=== PATIENT | female | born 1950 | race Caucasian/White ===

== ENCOUNTER 2024-10-04 12:29 | Inpatient (IN) | payer OTHER ==
[2024-10-04] MEDS ORDERED: LORazepam 2 MG/ML VIAL ONE (12:46)
[2024-10-04] MEDS ORDERED: ASPIRIN 81 MG CHEWABLE TABLET ONE (12:47)
[2024-10-04] MEDS ORDERED: MAGNESIUM SULFATE 1 gm IVPB 1 GM/100 ML BAG IV ONE (12:47)
[2024-10-04] MEDS ORDERED: FAMOTIDINE 20 MG/2 ML VIAL IV ONE (12:47)
[2024-10-04] MEDS ORDERED: NA CHLORIDE 0.9% 1,000 ML ONE (12:48)
[2024-10-04 13:04] LABS: Absolute Eosinophils 0.2 K/uL (0-0.5); Absolute Monocytes 0.8 K/uL (0.1-1.3); Basophils % 0.4 % (0-1.3); Eosinophils % 2.2 % (0-4.4); Hematocrit 39.5 % (36.0-45.0); Hemoglobin 13.3 g/dL (12.0-15.0); Lymphocytes % 25.5 % (15.3-44.8); MCH 30.6 pg (27.0-35.0); MCHC 33.7 g/dL (32.0-36.0); MCV 90.8 fL (80-100); MPV 7.6 fL (7.6-11.3); Monocytes % 9.6 % (3.3-12.3); Neutrophils % 62.3 % (41.7-73.7); Platelets 369 thou/uL (152-406); RBC Red Blood Cell Count 4.35 M/uL (3.86-4.86); Red Cell Distribution Width 14.9 % (12.1-15.2)
[2024-10-04 13:05] LABS: PT Prothrombin Time 10.9 SECONDS (10-13.0); Protime INR 0.95
[2024-10-04 13:25] LABS: ALT/SGPT 33 U/L (13-56); AST/SGOT 21 U/L (15-37); Albumin 3.7 g/dL (3.4-5.0); Albumin/Globulin Ratio 0.8 (1.1-1.8); Alkaline Phosphatase 106 U/L (45-117); Anion Gap 8.9 mEq/L (5.0-15.0); BUN Blood Urea Nitrogen 30 mg/dL (7-18); Bicarbonate 28 mEq/L (21-32); Bilirubin Total 0.4 mg/dL (0.2-1.0); Globulin 4.6 g/dL (2.3-3.5); Glomerular Filtration Rate 62 ml/min (=/>90); Glucose Level 141 mg/dL (74-106); Lipase 33 U/L (13-75); Magnesium 2.3 mg/dL (1.6-2.4); NT PRO-BNP 435 pg/mL (<125); Potassium 3.9 mEq/L (3.5-5.1); Protein, Total 8.3 g/dL (6.4-8.2); Sodium Level 138 mEq/L (136-145); Troponin High Sensitivity 8.8 pg/mL (<58.9)
[2024-10-04 13:31] LABS: Bilirubin Direct < 0.2 mg/dL (0-0.2); Bilirubin Indirect, Calculated 0.2 mg/dL (0.2-0.8)
--- NOTE | 2024-10-04 14:28 | RAD REPORT ---
EXAMINATION: ONE VIEW CHEST XR CLINICAL INDICATION: COUGH TECHNIQUE: Frontal chest projection is submitted. Examination is limited by patient positioning and t echnique. COMPARISON: No prior exam. FINDINGS: Mild pulmonary edema. Heart is moderately enlarged. No displaced fractures identified. Right-sided p ort catheters tip in SVC. IMPRESSION: Mild CHF.
[2024-10-04] MEDS ORDERED: POTASSIUM 25 MEQ EFFERV TAB ONE (14:51)
[2024-10-04] MEDS ORDERED: FUROSEMIDE 40 MG/4 ML VIAL ONE (14:51)
--- NOTE | 2024-10-04 15:06 | ER ---
Nurse's Notes [facility] Name: Malu Lennon Age: 74 yrs Sex: Female : 1950 Arrival Date: 10/04/2024 Time: 12:29 Bed 4 Private MD: Diagnosis: Chest pain, unspecified;Dyspnea;Type 2 diabetes mellitus with hyperglycemia;Combined systolic (congestive) and diastolic (congestive) heart failure;Obesity, unspecified Presentation: 10/04 12:34 Chief complaint: EMS states: Called to patients home for chest heaviness and burning cm10 onset this morning. Pt also reports feeling palpitations. Coronavirus screen: Client denies travel out of the [place] in the last 14 days. Ebola Screen: Patient denies travel to an Ebola-affected area in the 21 days before illness onset. Initial Sepsis Screen: Does the patient meet any 2 criteria? No. Patient's initial sepsis screen is negative. Does the patient have a suspected source of infection? No. Patient's initial sepsis screen is negative. Risk Assessment: Do you want to hurt yourself or someone else? Patient reports no desire to harm self or others. Onset of symptoms was October 04, 2024. 12:34 Method Of Arrival: EMS: [facility] cm10 12:34 Acuity: MARGI 2 cm10 12:36 Care prior to arrival: Glucose check: 191. cm10 Triage Assessment: 12:37 General: Appears uncomfortable, Behavior is calm, cooperative. Pain: Complains of pain cm10 in chest Pain currently is 7 out of 10 on a pain scale. Quality of pain is described as burning, heavy, Pain began This morning. Neuro: No deficits noted. Level of Consciousness is awake, alert, obeys commands, Oriented to person, place, time, situation, Appropriate for age. Cardiovascular: Reports chest pain, palpitations, Chest pain is described as Pain is 7 out of 10 on a pain scale. quality is burning, heaviness. Respiratory: No deficits noted. Airway is patent Respiratory effort is even, unlabored, Respiratory pattern is regular, symmetrical. Derm: Skin is pink, warm \T\ dry. Historical: - Allergies: 12:36 No Known Allergies; cm10 - PMHx: 12:36 Diabetes mellitus; Hypertensive disorder; Colon Cancer; cm10 - PSHx: 12:36 Colon Ressection; cm10 - Immunization history:: Adult Immunizations up to date. - Infectious Disease History:: Denies. - Social history:: Smoking status: Patient denies any tobacco usage or history of. - Family history:: not pertinent. Screenin:38 [facility] ED Fall Risk Assessment (Adult) History of falling in the last 3 months, cm10 including since admission No falls in past 3 months (0 pts) Confusion or Disorientation No (0 pts) Intoxicated or Sedated No (0 pts) Impaired Gait No (0 pts) Mobility Assist Device Used No (0 pt) Altered Elimination No (0 pt) Score/Fall Risk Level 0 - 2 = Low Risk Oriented to surroundings, Maintained a safe environment, Hourly rounding (assess needs \T\ fall precautionary measures) done. Abuse screen: Denies threats or abuse. Denies injuries from another. Nutritional screening: No deficits noted. Tuberculosis screening: No symptoms or risk factors identified. Assessment: 13:53 Reassessment: Patient appears in no apparent distress at this time. Patient and/or cm10 family updated on plan of care and expected duration. Pain level reassessed. Patient is alert, oriented x 3, equal unlabored respirations, skin warm/dry/pink. 15:11 Reassessment: Patient appears in no apparent distress at this time. Patient and/or cm10 family updated on plan of care and expected duration. Pain level reassessed. Patient is alert, oriented x 3, equal unlabored respirations, skin warm/dry/pink. Purewick placed on patient at this time. 16:57 Reassessment: Patient appears in no apparent distress at this time. Patient and/or cm10 family updated on plan of care and expected duration. Pain level reassessed. Patient is alert, oriented x 3, equal unlabored respirations, skin warm/dry/pink. Vital Signs: 12:34 BP 153 / 74; Pulse 75; Resp 15; Temp 98.1; Pulse Ox 99% on R/A; Weight 96.62 kg; Height cm10 5 ft. 2 in. ; Pain 7/10; 13:52 BP 130 / 61; Pulse 67; Resp 15; Pulse Ox 97% on R/A; cm10 15:11 BP 130 / 58; Pulse 70; Resp 15; Pulse Ox 98% ; cm10 15:30 BP 133 / 69; Pulse 71; Resp 15; Pulse Ox 100% on R/A; cm10 16:00 BP 126 / 66; Pulse 70; Resp 15; Pulse Ox 100% ; cm10 16:30 BP 120 / 58; Pulse 67; Resp 15; Pulse Ox 100% ; cm10 12:34 Body Mass Index 38.96 (96.62 kg, 157.48 cm) cm10 12:34 Pain Scale: Adult cm10 [place] Coma Score: 13:17 Eye Response: spontaneous(4). Motor Response: obeys commands(6). Verbal Response: tejinder oriented(5). Total: 15. ED Course: 12:30 Patient arrived in ED. bd 12:32 Nic Crystal MD is Attending Physician. tejinder 12:34 Lacie Izquierdo, CARLEY is Primary Nurse. cm10 12:35 Triage completed. cm10 12:38 Arm band placed on right wrist. Patient placed in an exam room, on a stretcher, on cm10 residential monitor, on pulse oximetry. EKG completed in triage. Results shown to MD. 12:38 Patient has correct armband on for positive identification. Placed in gown. Bed in low cm10 position. Call light in reach. Side rails up X2. Client placed on continuous cardiac and pulse oximetry monitoring. NIBP monitoring applied. cafeteria monitor on. 12:38 EKG done, by ED staff, reviewed by Nic Crystal MD. cm10 12:41 Initial lab(s) drawn, by ED staff, sent to lab. Inserted saline lock: 20 gauge in right kb4 antecubital area, using aseptic technique. Blood collected. Flushed with 10 mL NS. 14:24 XRAY Chest (1 view) In Process Unspecified. EDMS 15:05 Harmony Yoon MD is Hospitalizing Provider. [facility] 16:58 No provider procedures requiring assistance completed. Patient admitted, IV remains in cm10 place. 16:59 Provided Education on: Need for admit. 10 Administered Medications: 12:58 Drug: Magnesium Sulfate IVPB 1 grams IVPB once over 1 hrs Route: IVPB; Infused Over: 1 bp hrs; Site: right antecubital; 14:34 Follow up: Response: No adverse reaction; IV Status: Completed infusion cm10 12:58 Drug: Ativan IVP 0.5 mg IVP once Route: IVP; Site: right antecubital; bp 13:02 Follow up: Response: No adverse reaction bp 12:58 Drug: Aspirin PO Chewable Tablet 81 mg PO once Route: PO; bp 13:02 Follow up: Response: No adverse reaction bp 12:58 Drug: Famotidine IVP 20 mg IVP once; dilute with 10 mL 0.9% NaCl; give over 2 minutes bp Route: IVP; Site: right antecubital; 13:02 Follow up: Response: No adverse reaction bp 12:59 Drug: NS 0.9% IV 1000 ml IV at 1000 ml once; to be given as a bolus over 60 minutes bp Route: IV; Rate: 1000 ml; Site: right antecubital; 14:34 Follow up: Response: No adverse reaction; IV Status: Completed infusion; IV Intake: cm10 1000ml 15:11 Drug: Furosemide IVP 40 mg IVP once; give over 2 minutes Route: IVP; Site: right cm10 antecubital; 16:11 Follow up: Response: No adverse reaction cm10 15:11 Drug: Potassium PO Effervescent Tablet 50 mEq PO once; dissolve in 4 ounces of water or cm10 juice Route: PO; 16:11 Follow up: Response: No adverse reaction cm10 15:39 Drug: GI Cocktail without - (Maalox PO 30 ml, Lidocaine Mucous Membrane 2 % 15 jb4 ml) PO once Route: PO; 16:53 Follow up: Response: No adverse reaction cm10 15:39 Drug: Enoxaparin Sub-Q 90 mg Sub-Q once Route: Sub-Q; Site: left lower abdomen; jb4 16:53 Follow up: Response: No adverse reaction cm10 Medication: 12:38 VIS not applicable for this client. cm10 Intake: 14:34 IV: 1000ml; Total: 1000ml. cm10 Outcome: 15:06 Decision to Hospitalize by Provider. tejinder 16:58 Admitted to Med/surg via stretcher, room 224, cm10 16:58 Condition: stable 16:58 Instructed on the need for admit, 17:54 Patient left the ED. cm10 Signatures: Dispatcher [employer] EDMS Genesis Lynn Corey, MD MD cha Bryson, James RN RN jb4 Faheem Smith RN RN bp Martinez, Clarissa, RN RN cm10 Cox, Juany kb4
--- NOTE | 2024-10-04 15:06 | EDPHYS ---
Physician Documentation [facility] Name: Malu Lennon Age: 74 yrs Sex: Female : 1950 Arrival Date: 10/04/2024 Time: 12:29 Bed 4 Private MD: ED Physician Nic Crystal HPI: 10/04 13:17 This 74 yrs old Female presents to ER via EMS with complaints of Chest Pain. tejinder 13:17 The patient or guardian reports chest pain that is located primarily in the anterior tejinder chest wall, bilaterally. Onset: 3 day(s) ago. The pain does not radiate. Associated signs and symptoms: The patient has no apparent associated signs or symptoms. The chest pain is described as shaking. Duration: The patient or guardian reports multiple episodes, with no pattern. Duration: The patient or guardian reports multiple episodes. Modifying factors: The symptoms are alleviated by nothing. the symptoms are aggravated by nothing. Severity of pain: At its worst the pain was very mild in the emergency department the pain is unchanged. The patient has experienced similar episodes in the past, multiple times. Historical: - Allergies: 12:36 No Known Allergies; cm10 - PMHx: 12:36 Diabetes mellitus; Hypertensive disorder; Colon Cancer; cm10 - PSHx: 12:36 Colon Ressection; cm10 - Immunization history:: Adult Immunizations up to date. - Infectious Disease History:: Denies. - Social history:: Smoking status: Patient denies any tobacco usage or history of. - Family history:: not pertinent. ROS: 13:17 Constitutional: Negative for fever, chills, and weight loss, Eyes: Negative for injury, tejinder pain, redness, and discharge, ENT: Negative for injury, pain, and discharge, Neck: Negative for injury, pain, and swelling, Cardiovascular: Negative for chest pain, palpitations, and edema, Respiratory: Negative for shortness of breath, cough, wheezing, and pleuritic chest pain, Abdomen/GI: Negative for abdominal pain, nausea, vomiting, diarrhea, and constipation, Back: Negative for injury and pain, : Negative for injury, bleeding, discharge, and swelling, MS/Extremity: Negative for injury and deformity, Skin: Negative for injury, rash, and discoloration, Neuro: Negative for headache, weakness, numbness, tingling, and seizure, Psych: Negative for depression, anxiety, suicide ideation, homicidal ideation, and hallucinations, Allergy/Immunology: Negative for hives, rash, and allergies, Endocrine: Negative for neck swelling, polydipsia, polyuria, polyphagia, and marked weight changes, Hematologic/Lymphatic: Negative for swollen nodes, abnormal bleeding, and unusual bruising, 13:17 MS/extremity: Negative for acute changes, Exam: 13:17 Constitutional: This is a well developed, well nourished patient who is awake, alert, tejinder and in no acute distress. Head/Face: Normocephalic, atraumatic. Eyes: Pupils equal round and reactive to light, extra-ocular motions intact. Lids and lashes normal. Conjunctiva and sclera are non-icteric and not injected. Cornea within normal limits. Periorbital areas with no swelling, redness, or edema. ENT: Nares patent. No nasal discharge, no septal abnormalities noted. Tympanic membranes are normal and external auditory canals are clear. Oropharynx with no redness, swelling, or masses, exudates, or evidence of obstruction, uvula midline. Mucous membranes moist. Neck: Trachea midline, no thyromegaly or masses palpated, and no cervical lymphadenopathy. Supple, full range of motion without nuchal rigidity, or vertebral point tenderness. No Meningismus. Chest/axilla: Normal chest wall appearance and motion. Nontender with no deformity. No lesions are appreciated. Cardiovascular: Regular rate and rhythm with a normal S1 and S2. No gallops, murmurs, or rubs. Normal PMI, no JVD. No pulse deficits. Respiratory: Lungs have equal breath sounds bilaterally, clear to auscultation and percussion. No rales, rhonchi or wheezes noted. No increased work of breathing, no retractions or nasal flaring. Abdomen/GI: Soft, non-tender, with normal bowel sounds. No distension or tympany. No guarding or rebound. No evidence of tenderness throughout. Back: No spinal tenderness. No costovertebral tenderness. Full range of motion. Skin: Warm, dry with normal turgor. Normal color with no rashes, no lesions, and no evidence of cellulitis. MS/ Extremity: Pulses equal, no cyanosis. Neurovascular intact. Full, normal range of motion., bilateral aka Neuro: Awake and alert, GCS 15, oriented to person, place, time, and situation. Cranial nerves II-XII grossly intact. Motor strength 5/5 in all extremities. Sensory grossly intact. Cerebellar exam normal. Normal gait. Psych: Awake, alert, with orientation to person, place and time. Behavior, mood, and affect are within normal limits. 13:17 ECG was reviewed by the Attending Physician. 13:17 Musculoskeletal/extremity: DVT Exam: No signs of deep vein thrombosis. no pain, no swelling, no tenderness, negative Homans' sign noted on exam, no appreciated bluish discoloration, no erythema, no increased warmth, Vital Signs: 12:34 BP 153 / 74; Pulse 75; Resp 15; Temp 98.1; Pulse Ox 99% on R/A; Weight 96.62 kg; Height cm10 5 ft. 2 in. ; Pain 7/10; 13:52 BP 130 / 61; Pulse 67; Resp 15; Pulse Ox 97% on R/A; cm10 15:11 BP 130 / 58; Pulse 70; Resp 15; Pulse Ox 98% ; cm10 15:30 BP 133 / 69; Pulse 71; Resp 15; Pulse Ox 100% on R/A; cm10 16:00 BP 126 / 66; Pulse 70; Resp 15; Pulse Ox 100% ; cm10 16:30 BP 120 / 58; Pulse 67; Resp 15; Pulse Ox 100% ; cm10 12:34 Body Mass Index 38.96 (96.62 kg, 157.48 cm) cm10 12:34 Pain Scale: Adult cm10 [place] Coma Score: 13:17 Eye Response: spontaneous(4). Motor Response: obeys commands(6). Verbal Response: tejinder oriented(5). Total: 15. MDM: 12:32 Medical Screening Exam initiated tejinder 13:21 Differential diagnosis: abnormal EKG, acute myocardial infarction, acute pericarditis, tejinder chest wall pain, cholecystitis, Cholelithiasis costochondritis, esophagitis, gastritis, herpes zoster, mitral valve prolapse, myocarditis, pancreatitis, peptic ulcer disease, pericarditis, pleurisy, pneumonia, pulmonary embolus, stable angina, thoracic aortic disection, unstable angina. HEART Score: History: Slightly Suspicious (0), ECG: Normal (0), Age: > or = 65 years (2), Risk Factors: > or = 3 Risk factors for atherosclerotic disease (2), [Hypertension] [+ Family HX] [Obesity] Troponin: < or = 1 x Normal Limit (0), Total Score = 4. The patient was given aspirin in the Emergency Department. CHLOE Risk Score: 1 - patient's age is greater or equal to 65 years, 1 - Three or more CAD risk factors, 1- Known CAD, 1 - ASA use in past 7 days, TOTAL SCORE = 4. Data reviewed: vital signs, nurses notes, lab test result(s), EKG, radiologic studies, plain films. Consideration of Admission/Observation Escalation of care including admission/observation considered. I considered the following discharge prescriptions or medication management in the emergency department Medications were administered in the Emergency Department. See MAR. Independent interpretation of the following test(s) in the Emergency Department EKG: See my EKG interpretation above. Test considered but Not performed: CT: no ct chest. Historians other than the Patient: EMS: ems well informed. pt well informed. Counseling: I had a detailed discussion with the patient and/or guardian regarding the historical points, exam findings, and any diagnostic results supporting the discharge/admit diagnosis, lab results, radiology results, the need for outpatient follow up, for definitive care, a helper/driver, a family practitioner. 10/04 12:41 Order name: Basic Metabolic Panel; Complete Time: 14:22 [facility] 10/04 12:41 Order name: CBC with Diff; Complete Time: 13:45 [facility] 10/04 12:41 Order name: LFT's; Complete Time: 14:22 [facility] 10/04 12:41 Order name: Magnesium; Complete Time: 14:22 [facility] 10/04 12:41 Order name: NT PRO-BNP; Complete Time: 14:22 [facility] 10/04 12:41 Order name: PT-INR; Complete Time: 13:45 [facility] 10/04 12:41 Order name: Troponin HS; Complete Time: 14:22 [facility] 10/04 12:41 Order name: Lipase; Complete Time: 14:22 [facility] 10/04 12:41 Order name: Urinalysis w/ reflexes [facility] 10/04 13:05 Order name: Thyroid Stimulating Hormone; Complete Time: 14:22 [facility] 10/04 13:33 Order name: T4 Free; Complete Time: 14: [facility] 10/04 16:35 Order name: Basic Metabolic Panel [facility] 10/04 16:35 Order name: Basic Metabolic Panel EDMS 10/04 16:35 Order name: Basic Metabolic Panel EDMS 10/04 16:35 Order name: Basic Metabolic Panel EDMS 10/04 16:35 Order name: Basic Metabolic Panel EDMS 10/04 16:35 Order name: Basic Metabolic Panel EDMS 10/04 16:35 Order name: CBC with Automated Diff EDMS 10/04 16:35 Order name: CBC with Automated Diff EDMS 10/04 16:35 Order name: CBC with Automated Diff EDMS 10/04 16:35 Order name: CBC with Automated Diff EDMS 10/04 16:35 Order name: CBC with Automated Diff EDMS 10/04 16:35 Order name: CBC with Automated Diff EDMS 10/04 16:35 Order name: Hemoglobin A1c EDMS 10/04 16:35 Order name: Hemoglobin A1c EDMS 10/04 12:41 Order name: XRAY Chest (1 view); Complete Time: 14:43 tejinder 10/04 16:35 Order name: Abdomen EDMS 10/04 16:35 Order name: Echo with Doppler EDMS 10/04 16:35 Order name: Extrem Venous W Compress Sage EDMS 10/04 12:41 Order name: Cardiac monitoring; Complete Time: 12:42 tejinder 10/04 12:41 Order name: EKG - Nurse/Tech; Complete Time: 12:42 tejinder 10/04 12:41 Order name: IV Saline Lock; Complete Time: 12:50 tejinder 10/04 12:41 Order name: Labs collected and sent; Complete Time: 12:50 tejinder 10/04 12:41 Order name: O2 Per Protocol; Complete Time: 12:50 tejinder 10/04 12:41 Order name: O2 Sat Monitoring; Complete Time: 12:50 [facility] EC:17 Rate is 76 beats/min. Rhythm is regular. QRS [place] is Normal. ID interval is normal. QRS tejinder interval is normal. QT interval is normal. No Q waves. T waves are Normal. No ST changes noted. Clinical impression: NSR w/ Non-specific ST/T Changes and No evidence of ischemia. Interpreted by me. Reviewed by me. Administered Medications: 12:58 Drug: Magnesium Sulfate IVPB 1 grams IVPB once over 1 hrs Route: IVPB; Infused Over: 1 bp hrs; Site: right antecubital; 14:34 Follow up: Response: No adverse reaction; IV Status: Completed infusion cm10 12:58 Drug: Ativan IVP 0.5 mg IVP once Route: IVP; Site: right antecubital; bp 13:02 Follow up: Response: No adverse reaction bp 12:58 Drug: Aspirin PO Chewable Tablet 81 mg PO once Route: PO; bp 13:02 Follow up: Response: No adverse reaction bp 12:58 Drug: Famotidine IVP 20 mg IVP once; dilute with 10 mL 0.9% NaCl; give over 2 minutes bp Route: IVP; Site: right antecubital; 13:02 Follow up: Response: No adverse reaction bp 12:59 Drug: NS 0.9% IV 1000 ml IV at 1000 ml once; to be given as a bolus over 60 minutes bp Route: IV; Rate: 1000 ml; Site: right antecubital; 14:34 Follow up: Response: No adverse reaction; IV Status: Completed infusion; IV Intake: cm10 1000ml 15:11 Drug: Furosemide IVP 40 mg IVP once; give over 2 minutes Route: IVP; Site: right cm10 antecubital; 16:11 Follow up: Response: No adverse reaction cm10 15:11 Drug: Potassium PO Effervescent Tablet 50 mEq PO once; dissolve in 4 ounces of water or cm10 juice Route: PO; 16:11 Follow up: Response: No adverse reaction cm10 15:39 Drug: GI Cocktail without - (Maalox PO 30 ml, Lidocaine Mucous Membrane 2 % 15 jb4 ml) PO once Route: PO; 16:53 Follow up: Response: No adverse reaction cm10 15:39 Drug: Enoxaparin Sub-Q 90 mg Sub-Q once Route: Sub-Q; Site: left lower abdomen; jb4 16:53 Follow up: Response: No adverse reaction cm10 Disposition Summary: 10/04/24 15:06 Hospitalization Ordered Notes: Hospitalization Status: Observation tejinder Provider: Harmony Yoon cha Location: Telemetry/MedSurg (observation) tejinder Condition: Fair tejinder Problem: new tejinder Symptoms: have improved tejinder Bed/Room Type: Standard tejinder Room Assignment: 224(10/04/24 16:38) bd Diagnosis - Chest pain, unspecified tejinder - Dyspnea tejinder - Type 2 diabetes mellitus with hyperglycemia tejinder - Combined systolic (congestive) and diastolic (congestive) heart failure tejinder - Obesity, unspecified tejinder Discharge Instructions: - Discharge Summary Sheet tejinder - Nonspecific Chest Pain, Adult tejinder - Chest Wall Pain tejinder - Weakness tejinder - Chest Wall Pain, [id number] tejinder - Nonspecific Chest Pain, Adult, [id number] tejinder - Weakness, [id number] tejinder - Aspirin and Your Heart tejinder Forms: - Medication Reconciliation Form tejinder - SBAR form tejinder - Leadership Thank You Letter [facility] Signatures: Dispatcher [employer] EDMS Genesis Lynn Corey, MD MD cha Bryson, James, RN RN jb4 Faheem Smith, RN RN bp Lacie Izquierdo, CARLEY RN cm10 Corrections: (The following items were deleted from the chart) 12:42 12:42 BASIC METABOLIC PANEL+C.LAB.BRZ ordered. EDMS EDMS 12:42 12:42 CBC+H.LAB.BRZ ordered. EDMS EDMS 12:42 12:42 HEPATIC FUNCTION+C.LAB.BRZ ordered. EDMS EDMS 12:42 12:42 MAGNESIUM+C.LAB.BRZ ordered. EDMS EDMS 12:42 12:42 PROBNP+C.LAB.BRZ ordered. EDMS EDMS 12:42 12:42 PROTIME (+INR)+COAG.LAB.BRZ ordered. EDMS EDMS 12:42 12:42 Troponin High Sensitivity+C.LAB.BRZ ordered. EDMS EDMS 12:42 12:42 LIPASE+C.LAB.BRZ ordered. EDMS EDMS 12:42 12:42 Urinalysis+U.LAB.BRZ ordered. EDMS EDMS 12:42 12:42 Chest Single View+RAD.RAD.BRZ ordered. EDMS EDMS 13:03 13:01 THYROID STIMULAT HORMONE+C.LAB.BRZ ordered. EDMS EDMS 16:38 15:06 tejinder bd
[2024-10-04] MEDS ORDERED: ENOXAPARIN 100 MG/ML SYR SQ ONE (15:29)
[2024-10-04] MEDS ORDERED: MAGNES/ALUMIN/SIMET 30ML UCUP ONE (15:30)
[2024-10-04] MEDS ORDERED: LIDOCAINE VISCOUS 2% 10ML ORAL SOLN ONE (15:30)
[2024-10-04] MEDS ORDERED: ALBUTEROL 2.5 MG/3 ML NEB SOL NEB PRN (16:27)
[2024-10-04] MEDS ORDERED: ONDANSETRON 4 MG/2 ML VIAL IV PRN (16:27)
[2024-10-04] MEDS ORDERED: GLUCAGON 1 MG/VIAL IM PRN (16:32)
[2024-10-04] MEDS ORDERED: D10W 125 ML IV PRN (16:32)
--- NOTE | 2024-10-04 16:40 | P.HP ---
Certification for Inpatient With expected LOS: >2 Midnights Patient will require the following post-hospital care: None Practitioner: I am a practitioner with admitting privileges, knowledge of patient current condition, hospital course, and medical plan of care. Services: Services provided to patient in accordance with Admission requirements found in Title 42 Section 412.3 of the Code of Federal Regulations Patient History Date of Service: 10/04/24 Reason for admission: CHF History of Present Illness: 74-year-old patient presented with burning of the chest and the back, she was found to have CHF, so we were asked admit her. On further questioning, she is complaining of chest, abdomen and back burning for the last 1 to 2 weeks, she is also complaining of hot flashes like feelings for the last 1 week so she presented to the emergency room. She is complaining of palpitations and hand tremors for the last couple of months. She is complaining of on and off abdominal pain and constipation for the last 3 months, no abdominal pain today. Complaining of bilateral lower extremity edema for the last 1 week. She lost 20 pounds in the last for 5 weeks. She has chronic arthritic joint pains. No headache or blackouts. No double vision or blurry vision. No cough or sputum production. No shortness of breath. No nausea or vomiting. No blood in the urine or stool. No fever. Review of systems: All other 10 point review of systems are negative other than as mentioned above. Allergies and medications: Reviewed, as per med rec EMR. Past medical history: Diabetes mellitus type 2, hypertension, colon cancer status post resection, coronary artery disease status post stent Past surgical history: Back surgery x 2, colon resection Social history: No smoking or alcohol or drugs Family history: No family history of CVA. Niece had a history of IA. Physical examination: Vital signs: Reviewed, as per EMR. General appearance: Alert and comfortable HEENT: Extraocular movements intact, oral mucosa moist. CVS: Normal S1-S2 Lungs: Clear to auscultation bilaterally Abdomen: Soft, bowel sounds present, no tenderness Extremities: 1+ b/l lower extremity edema GOLD PROSPECTOR: Moves all 4 extremities, no obvious focal deficits Musculoskeletal: No obvious joint swelling or tenderness Physical Examination - Studies Laboratory Data (last 24 hrs) 10/04/24 10/04/24 10/04/24 12:53 12:53 12:53 WBC 7.90 Hgb 13.3 Hct 39.5 Plt Count 369 PT 10.9 INR 0.95 Sodium 138 Potassium 3.9 BUN 30 H Creatinine 0.96 Glucose 141 H Magnesium 2.3 Total Bilirubin 0.4 AST 21 ALT 33 Alkaline Phosphatase 106 Lipase 33 Assessment and Plan - Plan . Acute CHF: Not sure systolic or diastolic, will get an echocardiogram, start IV diuretics for now, monitor volume status closely. 2. Mild increase in TSH but T4 normal: Need follow-up with PCP. 3. Abdominal pain and constipation: Will get a CT abdomen due to recent weight loss. 4. Morbid obesity with a BMI of 39: Follow-up with PCP. 5. Diabetes mellitus type 2: Start sliding scale insulin, diabetic diet, monitor sugars closely, check A1c. 6. Hypertension: Continue home medications. 7. Coronary disease status post CABG status post and placement: Continue home medications. DVT prophylaxis: Lovenox CODE STATUS: She would like to be full code. Advanced directives: Her niece Anusha is the POA. I Discussed all the above mentioned plan with the patient, she understands and agrees with the plan. All questions answered. - Advance Directives Does patient have a Living Will: No Does patient have a Durable POA for Healthcare: No
[2024-10-04] MEDS ORDERED: HYDRALAZINE HCL 20 MG/ML VIAL IV PRN (16:43)
[2024-10-04] MEDS: FUROSEMIDE 40 MG/4 ML VIAL IV SCH (17:00)
--- NOTE | 2024-10-04 18:01 | RAD REPORT ---
EXAMINATION: CT ABDOMEN AND PELVIS WITH CONTRAST CLINICAL INDICATION: weight loss, abdominal pain, constipation TECHNIQUE: CT abdomen and pelvis was performed, after the administration of IV contrast, as per [facility] protocol. Axial, sagittal and coronal reconstructions were obtained. One or more of the following dose reduction techniques were used: Automated exposure control, adjustment of the mA and k V according to patient size, and iterative reconstruction. Unless otherwise specified, incidental findings do not require dedicated imaging follow-up. COMPARISON: No prior exam. FINDINGS: LOWER CHEST: The visualized lung bases are clear. LIVER: Normal in size and contour. No focal lesion. Cholecystectomy clips. SPLEEN: Normal size. No focal lesion. PANCREAS: No mass, ductal dilation, or gilda-pancreatic fluid. ADRENALS: Bilateral adrenal nodules present, likely benign adenomas. KIDNEYS: Normal size and contour. No hydronephrosis. GASTROINTESTINAL TRACT: No evidence of free air, significant intra-abdominal free fluid, bowel obstru ction or abscess. Partial right-sided colectomy seen. APPENDIX: Appendix not visualized, but no inflammatory changes in region of appendix. LYMPH NODES: No lymphadenopathy. MUSCULOSKELETAL: Moderate lower lumbar wedge compression fractures affect L4 and L5. ADDITIONAL FINDINGS: Small amount of air in the bladder.. IMPRESSION: Query urinary tract infection. Moderate lower lumbar compression fractures, age indeterminant No acute intra-abdominal process.
[2024-10-04] MEDS: INSULIN REGULAR (HUMAN) 100 UNIT/ML SQ SCH (20:48)
[2024-10-05] MEDS: ACETAMINOPHEN 500 MG TAB PO PRN (04:11)
[2024-10-05 05:00] LABS: Absolute Basophils 0.1 K/uL (0-0.5); Absolute Eosinophils 0.2 K/uL (0-0.5); Absolute Lymphocytes (CBC) 2.2 K/uL (0.7-4.9); Absolute Monocytes 0.6 K/uL (0.1-1.3); Absolute Neutrophil 3.5 K/uL (1.8-8.0); Basophils % 0.8 % (0-1.3); Eosinophils % 2.5 % (0-4.4); Hematocrit 34.6 % (36.0-45.0); Hemoglobin 11.7 g/dL (12.0-15.0); Lymphocytes % 33.4 % (15.3-44.8); MCH 31.2 pg (27.0-35.0); MCHC 33.7 g/dL (32.0-36.0); MCV 92.4 fL (80-100); MPV 7.5 fL (7.6-11.3); Monocytes % 9.1 % (3.3-12.3); Neutrophils % 54.2 % (41.7-73.7); Nucleated Red Blood Cells % 0.1 % (0-0); Platelets 322 thou/uL (152-406); RBC Red Blood Cell Count 3.75 M/uL (3.86-4.86); Red Cell Distribution Width 15.1 % (12.1-15.2)
[2024-10-05 05:22] LABS: Anion Gap 7.1 mEq/L (5.0-15.0); Potassium 4.1 mEq/L (3.5-5.1)
--- NOTE | 2024-10-05 07:26 | RAD REPORT ---
EXAMINATION: US LOWER EXTREMITY VENOUS DOPPLER BILATERAL CLINICAL INDICATION: Female, 74 years old.b/l leg swelling, r/o DVT TECHNIQUE: Complete bilateral duplex sonography of the lower extremity veins was performed. The exami nation included compression for vein patency, color Doppler imaging and flow augmentation in response to distal compression of the distal external iliac, common femoral, femoral, popliteal, jose harsh, tibial and great saphenous veins. [id number]. COMPARISON: No prior exams FINDINGS: Duplex sonography imaging demonstrates all deep examined to be fully compressible with spontaneous, p hasic and augmented flow bilaterally. IMPRESSION: No evidence of deep venous thrombosis seen in either lower extremity.
[2024-10-05] MEDS: ENOXAPARIN 40 MG/0.4 ML SQ SCH (09:06)
[2024-10-05] MEDS: POLYETHYL GLY 3350 17 GM/DOSE PO PRN (10:42)
--- NOTE | 2024-10-05 11:50 | ECHO ---
HEIGHT: 5 ft 2 in WEIGHT: 213 lb 0.17 oz DATE OF STUDY: 10/05/[address]: Rodrigo Cruz 2-DIMENSIONAL: YES M.MODE: YES DOPPLER: YES COLOR FLOW: YES TDS: PORTABLE: YES DEFINITY: BUBBLE STUDY: DIAGNOSIS: CONGESTIVE HEART FAILURE CARDIAC HISTORY: CATHERIZATION: YES SURGERY: NO PROSTHETIC VALVE: NO PACEMAKER: NO MEASUREMENTS (cm) DIASTOLIC (NORMALS) SYSTOLIC (NORMALS) IVSd 1.1 (0.6-1.2) LA Diam 2.9 (1.9-4.0) LVEF 60-65% LVIDd 4.6 (3.5-5.7) LVIDs 3.0 (2.0-3.5) %FS 33% LVPWd 1.2 (0.6-1.2) Ao Diam 3.0 (2.0-3.7) 2 DIMENSIONAL ASSESSMENT: RIGHT ATRIUM: NORMAL LEFT ATRIUM: NORMAL RIGHT VENTRICLE: NORMAL LEFT VENTRICLE: NORMAL TRICUSPID VALVE: TRACE TRICUSPID REGURGITATION MITRAL VALVE: NORMAL PULMONIC VALVE: NORMAL AORTIC VALVE: NORMAL PERICARDIAL EFFUSION: NONE AORTIC ROOT: NORMAL LEFT VENTRICULAR WALL MOTION: NORMAL DOPPLER/COLOR FLOW: GRADE I DIASTOLIC DYSFUNCTION COMMENTS: 1. NORMAL LEFT VENTRICULAR SYSTOLIC FUNCTION, EJECTION FRACTION 60-65%, NORMAL WALL MOTION 2. GRADE I DIASTOLIC DYSFUNCTION 3. NORMAL FILLING PRESSURE (RIGHT ATRIAL PRESSURE 0-5 mmHg) TECHNOLOGIST: ZOLTAN OVIEDO
--- NOTE | 2024-10-05 12:28 | P.PN ---
Subjective Date of Service: 10/05/24 Chief Complaint: CHF Subjective: No shortness of breath. Chest And abdominal burning improving. No nausea or vomiting. No abdominal pain. No obvious bleeding. Looks comfortable in the bed. Chronic back pain for years, she had surgeries previously. Objective: General appearance: Alert and comfortable CVS: Normal S1 and S2 Lungs: Clear to auscultation bilaterally Abdomen: Soft, bowel sounds present, no tenderness Extremities: lower extremity edema improving, moves both legs Physical Examination - Vital Signs Temperature: 97.7 F Blood Pressure: 124/69 Pulse: 80 Respirations: 16 Pulse Ox (%): 98 - Studies Laboratory Data (last 24 hrs) 10/04/24 10/04/24 10/04/24 12:53 12:53 12:53 WBC 7.90 Hgb 13.3 Hct 39.5 Plt Count 369 PT 10.9 INR 0.95 Sodium 138 Potassium 3.9 BUN 30 H Creatinine 0.96 Glucose 141 H Magnesium 2.3 Total Bilirubin 0.4 AST 21 ALT 33 Alkaline Phosphatase 106 Lipase 33 Assessment And Plan - Plan 1. Acute diastolic CHF: continue IV diuretics for now, monitor volume status closely. -Clinically feels little better today. -Echo showed 60 to 65% EF, grade 1 diastolic dysfunction -Venous ultrasound negative 2. Mild increase in TSH but T4 normal: Need follow-up with PCP. 3. Abdominal pain and constipation: CT abdomen negative for any acute problems, continue bowel medications 4. Morbid obesity with a BMI of 39: Follow-up with PCP. 5. Diabetes mellitus type 2: Start sliding scale insulin, diabetic diet, monitor sugars closely, f/u A1c. Start Lantus for now. 6. Hypertension: Continue home medications. 7. Coronary disease status post CABG status post and placement: Continue home medications. 8. Lumbar compression fractures on CT scan, probably chronic, patient denies any new back pain. DVT prophylaxis: Lovenox CODE STATUS: She would like to be full code. Advanced directives: Her niece Anusha is the POA. I Discussed all the above mentioned plan with the patient, she understands and agrees with the plan. All questions answered. DC home in the next 1 to 2 days depending on clinical progress.
[2024-10-05] MEDS: INSULIN GLARGINE 100 UNIT/ML SQ SCH (15:27)
[2024-10-05] MEDS: LORAZEPAM 0.5 MG TABLET PO PRN (17:23)
[2024-10-05] MEDS: HYDROCODONE/APAP 10/325 TAB PO ONE (22:32)
[2024-10-06 04:34] LABS: Absolute Eosinophils 0.2 K/uL (0-0.5); Absolute Lymphocytes (CBC) 2.6 K/uL (0.7-4.9); Absolute Monocytes 0.8 K/uL (0.1-1.3); Absolute Neutrophil 4.2 K/uL (1.8-8.0); Basophils % 0.6 % (0-1.3); Eosinophils % 2.7 % (0-4.4); Hematocrit 34.7 % (36.0-45.0); Hemoglobin 11.8 g/dL (12.0-15.0); Lymphocytes % 33.2 % (15.3-44.8); MCHC 34.2 g/dL (32.0-36.0); MCV 90.8 fL (80-100); MPV 7.3 fL (7.6-11.3); Monocytes % 10.5 % (3.3-12.3); Platelets 307 thou/uL (152-406); RBC Red Blood Cell Count 3.82 M/uL (3.86-4.86); Red Cell Distribution Width 15.1 % (12.1-15.2)
[2024-10-06 04:45] LABS: Anion Gap 8.8 mEq/L (5.0-15.0); Potassium 3.8 mEq/L (3.5-5.1)
[2024-10-06] MEDS: hydrOXYzine HCL 25 MG TAB PO PRN (09:49)
--- NOTE | 2024-10-06 14:33 | P.PN ---
Subjective Date of Service: 10/06/24 Chief Complaint: CHF Subjective: No shortness of breath. Chest And abdominal burning improving but ongoing. No nausea or vomiting. No abdominal pain. No obvious bleeding. Looks comfortable in the bed. Chronic back pain for years, she had surgeries previously. C/o constipation Objective: General appearance: Alert and comfortable CVS: Normal S1 and S2 Lungs: Clear to auscultation bilaterally Abdomen: Soft, bowel sounds present, no tenderness Extremities: lower extremity edema improving but still present, 1-2+, moves both legs Physical Examination - Vital Signs Temperature: 97.8 F Blood Pressure: 137/71 Pulse: 103 Respirations: 16 Pulse Ox (%): 97 Assessment And Plan - Plan 1. Acute diastolic CHF: continue IV diuretics for now, monitor volume status closely. -Clinically feels little better today. -Echo showed 60 to 65% EF, grade 1 diastolic dysfunction -Venous ultrasound negative -will request cardiology consult 2. Mild increase in TSH but T4 normal: Need follow-up with PCP. 3. Abdominal pain and constipation: CT abdomen negative for any acute problems, continue bowel medications 4. Morbid obesity with a BMI of 39: Follow-up with PCP. 5. Diabetes mellitus type 2: Start sliding scale insulin, diabetic diet, monitor sugars closely, f/u A1c. cont Lantus for now, adjust dose. 6. Hypertension: Continue home medications. 7. Coronary disease status post CABG status post and placement: Continue home medications. 8. Lumbar compression fractures on CT scan, probably chronic, patient denies any new back pain. 9. Anxiety: PRN hydroxizine and ativan DVT prophylaxis: Lovenox CODE STATUS: She would like to be full code. Advanced directives: Her niece Anusha is the POA. I Discussed all the above mentioned plan with the patient, she understands and agrees with the plan. All questions answered. DC home in the next 1 to 2 days depending on clinical progress.
[2024-10-06] MEDS: INSULIN GLARGINE 100 UNIT/ML SQ ONE (15:21)
[2024-10-06 16:22] VITALS: BMI 38.9
[2024-10-06] MEDS: MIRTAZAPINE 15 MG TAB PO SCH (21:01)
[2024-10-06] MEDS: ZOLPIDEM TARTRATE 5 MG TABLET PO PRN (21:02)
[2024-10-07 04:47] LABS: Absolute Eosinophils 0.2 K/uL (0-0.5); Absolute Lymphocytes (CBC) 2.6 K/uL (0.7-4.9); Absolute Monocytes 0.8 K/uL (0.1-1.3); Absolute Neutrophil 2.9 K/uL (1.8-8.0); Basophils % 0.3 % (0-1.3); Eosinophils % 2.5 % (0-4.4); Hematocrit 34.7 % (36.0-45.0); Hemoglobin 11.6 g/dL (12.0-15.0); Lymphocytes % 40.4 % (15.3-44.8); MCH 30.3 pg (27.0-35.0); MCHC 33.3 g/dL (32.0-36.0); MPV 7.6 fL (7.6-11.3); Monocytes % 11.6 % (3.3-12.3); Neutrophils % 45.2 % (41.7-73.7); Nucleated Red Blood Cells % 0.1 % (0-0); Platelets 305 thou/uL (152-406); RBC Red Blood Cell Count 3.81 M/uL (3.86-4.86); Red Cell Distribution Width 15.1 % (12.1-15.2)
[2024-10-07 05:22] LABS: Anion Gap 8.8 mEq/L (5.0-15.0); Potassium 3.8 mEq/L (3.5-5.1)
--- NOTE | 2024-10-07 08:49 | EKG ---
Test Date: 2024-10-04 Test Time: 12:30:49 Crop Setting Out Machine Operator: JOSE MEASUREMENT RESULTS: Intervals: Rate: 76 [place]: 188 QRSD: 132 QT: 400 QTc: 450 [place]: P: 57 [place]: 188 QRS: -25 T: 49 INTERPRETIVE STATEMENTS: Sinus rhythm with premature atrial complexes Right bundle branch block Abnormal ECG No previous ECG available for comparison Electronically Signed On 10-07-24 08:40:43 CDT by Jona Hendricks
[2024-10-07] MEDS: INSULIN GLARGINE 100 UNIT/ML SQ SCH ×2 (09:00→14:54)
[2024-10-07] MEDS: DOCUSATE NA/SENNA CONC 1 TAB PO PRN (11:07)
--- NOTE | 2024-10-07 11:32 | P.CNS ---
Date of Consult: 10/07/24 Chief Complaint: CHF History of Present Illness: Patient with no significant Cardiac PMH presented with feeling shaky, back pain, denies chest pain, no palpitations, no syncope, report chronic MENJIVAR and lower extremities edema. Allergies No Known Allergies Allergy (Unverified 10/04/24 18:07) Home medications list reviewed: Yes - Social History Alcohol use: No CD- Drugs: No Caffeine use: No Place of Residence: Home Review of Systems 10-point ROS is otherwise unremarkable Physical Examination Temp Pulse Resp BP Pulse Ox 97.8 F 77 16 126/58 L 98 10/07/24 08:00 10/07/24 08:43 10/07/24 08:00 10/07/24 08:43 10/07/24 08:00 General: Alert, In no apparent distress HEENT: Atraumatic, PERRLA, Mucous membr. moist/pink, EOMI, Sclerae nonicteric Neck: Supple, 2+ carotid pulse no bruit, No LAD, Without JVD or thyroid abnormality Respiratory: Clear to auscultation bilaterally, Normal air movement Cardiovascular: Regular rate/rhythm, Normal S1 S2 Gastrointestinal: Normal bowel sounds, No tenderness Musculoskeletal: No tenderness Integumentary: No rashes Neurological: Normal gait, Normal speech, Normal tone, Normal affect Lymphatics: No axilla or inguinal lymphadenopathy - Problems (1) Acute on chronic diastolic heart failure Current Visit: Yes Status: Acute Plan: Patient echo shows normal EF with grade I DD, mild elevated filling pressure. agree with lasix 40 mg IV BID, May switch to lasix 40 mg daily on discharge. add aldactone 25 mg daily add farxiga 10 mg daily on discharge. monitor input and output and electrolytes. (2) Preoperative clearance Current Visit: Yes Status: Acute Plan: Patient need surgical clearance for hip surgery and she is not active, she can not do more than 4 METs. get nuclear stress test in am (Lexiscan)
--- NOTE | 2024-10-07 13:27 | P.PN ---
Subjective Date of Service: 10/07/24 Chief Complaint: CHF Subjective: No shortness of breath. Chest And abdominal burning improving. No nausea or vomiting. No abdominal pain. No obvious bleeding. Looks comfortable in the bed. Chronic back pain for years, she had surgeries previously. constipation better, had BM Objective: General appearance: Alert and comfortable CVS: Normal S1 and S2 Lungs: Clear to auscultation bilaterally Abdomen: Soft, bowel sounds present, no tenderness Extremities: lower extremity edema improving but still present 1+ todau Physical Examination - Vital Signs Temperature: 97.8 F Blood Pressure: 125/65 Pulse: 90 Respirations: 16 Pulse Ox (%): 100 Assessment And Plan - Plan 1. Acute diastolic CHF: continue IV diuretics for now, monitor volume status closely. -Clinically feels better today. -Echo showed 60 to 65% EF, grade 1 diastolic dysfunction -Venous ultrasound negative -cardiology consult on board 2. Mild increase in TSH but T4 normal: Need follow-up with PCP. 3. Abdominal pain and constipation: improving, CT abdomen negative for any acute problems, continue bowel medications 4. Morbid obesity with a BMI of 39: Follow-up with PCP. 5. Diabetes mellitus type 2: Start sliding scale insulin, diabetic diet, monitor sugars closely, cont Lantus for now 6. Hypertension: Continue home medications. 7. Coronary disease status post CABG status post and placement: Continue home medications. 8. Lumbar compression fractures on CT scan, probably chronic, patient denies any new back pain. 9. Anxiety: PRN hydroxizine and ativan DVT prophylaxis: Lovenox CODE STATUS: She would like to be full code. Advanced directives: Her niece Anusha is the POA. I Discussed all the above mentioned plan with the patient, she understands and agrees with the plan. All questions answered. DC home in the next 1 to 2 days depending on clinical progress.
[2024-10-07] MEDS: SPIRONOLACTONE 25 MG TABLET PO SCH (14:54)
[2024-10-07] MEDS: CALCIUM CARBONATE CHEW 500MG TAB PO PRN (20:38)
[2024-10-08 04:27] LABS: Absolute Eosinophils 0.3 K/uL (0-0.5); Absolute Lymphocytes (CBC) 2.3 K/uL (0.7-4.9); Absolute Monocytes 0.9 K/uL (0.1-1.3); Absolute Neutrophil 4.5 K/uL (1.8-8.0); Basophils % 0.4 % (0-1.3); Eosinophils % 3.8 % (0-4.4); Hematocrit 35.2 % (36.0-45.0); Hemoglobin 11.8 g/dL (12.0-15.0); Lymphocytes % 28.4 % (15.3-44.8); MCH 30.5 pg (27.0-35.0); MCHC 33.6 g/dL (32.0-36.0); MCV 90.8 fL (80-100); MPV 7.4 fL (7.6-11.3); Monocytes % 11.6 % (3.3-12.3); Neutrophils % 55.8 % (41.7-73.7); Platelets 306 thou/uL (152-406); RBC Red Blood Cell Count 3.87 M/uL (3.86-4.86); Red Cell Distribution Width 15.3 % (12.1-15.2)
[2024-10-08 08:49] VITALS: BP 121/64; TEMP 98.4
[2024-10-08 09:28] VITALS: O2SAT 97
[2024-10-08] MEDS ORDERED: REGADENOSON 0.4 MG/5 ML SYR IV ONE (11:28)
--- NOTE | 2024-10-08 12:34 | RAD REPORT ---
EXAM: Nuclear medicine cardiac perfusion examination with ejection fraction HISTORY: Preoperative clearance TECHNIQUE: Rest images: 10.3 mCi technetium 99m sestamibi Stress images: 27.9 mCi of technetium 99m sestamibi; Lexiscan COMPARISON: None FINDINGS: Tomographic images: No fixed or reversible perfusion defects. Gated images: Normal wall motion and ejection fraction of 65%. EDV: 85 mL ESV: 30 mL TID: 1.12 IMPRESSION: No scintigraphic evidence of myocardial ischemia. Left ventricular ejection fraction:65%, normal.
--- NOTE | 2024-10-08 13:22 | TREADPHA ---
DX: PREOP CLEARANCE Date of Study: 10/08/2024 Ht: 5' 2 " Wt: 213 lb 0.17 oz Consulting Physician: REBA MEDICATIONS: GLUCAGEN, PROVENTIL, DEXTROSE, LOVENOX, LASIX, GLUCAGEN, APRESOLINE, ATARAX, SEMGLEE, NOVOLIN R, ATIVAN, REMERON, ZOFRAN, GLYCOLAX, SENOKOT S, AMBIEN HISTORY: DIABETES MELLITUS, HYPERTENSION, BACK SURGERY TIMES TWO, COLON CANCER PHYSICIAL EXAMINATION: RESTING B.P.: 147/78 RESTING H.R.: 79 RESTING EKG: NORMAL SINUS WITH PREMATURE VENTRICULAR COMPLEXES, RIGHT BUNDLE BRANC BLOCK PROTOCOL: PHARMACOLOGIC EXERCISE TIME: 3:30 B.P. AT [place] STRESS: 90/47 IMPRESSION: LEXISCAN INJECTED. CARDIOLITE INJECTED - SEE NUCLEAR MEDICINE REPORT. COMPLAINTS OF SHORTNESS OF BREATH AND DIZZY "A LITTLE". PREMATURE VENRTRICULAR COMPLEXES THROUGHOUT - OCCASIONAL. NO ELECTROCARDIOGRAM CHANGES WITH LEXISCAN.
--- NOTE | 2024-10-08 15:25 | P.DS ---
Admission Date: 10/04/24 Discharge Date: 10/08/24 Disposition: DC HOME/HOME HEALTH CARE Discharge Condition: GOOD Reason for Admission: CHF Hospital Course: 1. Acute diastolic CHF: given IV diuretics -Clinically feels better today. -Echo showed 60 to 65% EF, grade 1 diastolic dysfunction -Venous ultrasound negative -cardiology consult on board -stress test negative 2. Mild increase in TSH but T4 normal: Need follow-up with PCP with repeat labs. 3. Abdominal pain and constipation: improving, CT abdomen negative for any acute problems, continue bowel medications 4. Morbid obesity with a BMI of 39: Follow-up with PCP. 5. Diabetes mellitus type 2 6. Hypertension: Continue current medications. 7. Coronary disease status post CABG status post and placement: Continue home medications. 8. Lumbar compression fractures on CT scan, probably chronic, patient denies any new back pain. 9. Anxiety: PRN meds 74-year-old patient presented with acute diastolic heart failure, she was given IV diuretics, she is slowly improving, cardiology was consulted, she had a stress test today which is negative, when I see the patient today she is doing well with that without any acute problems, she feels ready to go home, otherwise no other acute issues going on so I am planning to discharge her to go home, and follow-up with PCP. Her thyroid labs are mildly abnormal, she will need follow- up with PCP with repeat labs. Subjective: No chest pain or shortness of breath. No nausea or vomiting. No abdominal pain. No obvious bleeding. Looks comfortable in the bed. Objective: General appearance: Alert and comfortable CVS: Normal S1 and S2 Lungs: Clear to auscultation bilaterally Abdomen: Soft, bowel sounds present, no tenderness Extremities: No lower extremity edema Vital Signs/Physical Exam: Temp Pulse Resp BP Pulse Ox 98.4 F 71 12 121/64 97 10/08/24 08:00 10/08/24 09:04 10/08/24 08:00 10/08/24 09:04 10/08/24 08:00 Laboratory Data at Discharge: WBC 8.00 thou/uL (4.3-10.9) 10/08/24 04:07 Hgb 11.8 g/dL (12.0-15.0) L 10/08/24 04:07 Hct 35.2 % (36.0-45.0) L 10/08/24 04:07 Plt Count 306 thou/uL (152-406) 10/08/24 04:07 PT 10.9 SECONDS (10-13.0) 10/04/24 12:53 INR 0.95 10/04/24 12:53 Sodium 139 mEq/L (136-145) 10/08/24 04:07 Potassium 4.0 mEq/L (3.5-5.1) 10/08/24 04:07 BUN 41 mg/dL (7-18) H 10/08/24 04:07 Creatinine 1.17 mg/dL (0.55-1.02) H 10/08/24 04:07 Glucose 185 mg/dL (74-106) H 10/08/24 04:07 Magnesium 2.3 mg/dL (1.6-2.4) 10/04/24 12:53 Total Bilirubin 0.4 mg/dL (0.2-1.0) 10/04/24 12:53 AST 21 U/L (15-37) 10/04/24 12:53 ALT 33 U/L (13-56) 10/04/24 12:53 Alkaline Phosphatase 106 U/L (45-117) 10/04/24 12:53 Lipase 33 U/L (13-75) 10/04/24 12:53 Home Medications: Amlodipine Besylate 10 mg PO DAILY 10/07/24 Celecoxib 200 mg PO DAILY 10/07/24 LORazepam [Lorazepam] 1 mg PO TID 10/07/24 Mirtazapine 0.5 tab PO BEDTIME 10/07/24 hydroCHLOROthiazide [Hydrochlorothiazide] 12.5 mg PO DAILY 10/07/24 Dapagliflozin Propanediol [Farxiga] 10 mg PO DAILY #30 tab 10/08/24 Furosemide [Lasix] 40 mg PO DAILY #30 tab 10/08/24 Spironolactone [Aldactone] 25 mg PO DAILY #30 tab 10/08/24 New Medications: Spironolactone [Aldactone] 25 mg PO DAILY #30 tab Dapagliflozin Propanediol [Farxiga] 10 mg PO DAILY #30 tab Furosemide [Lasix] 40 mg PO DAILY #30 tab Diet: ADA Activity: Ad brenda Followup: OOT,OOT [Primary Care Provider] - 1 Week (f/u with PCP in 3-5 days with CBC, CMP and thyroid profile)
== END 2024-10-08 16:20 | disposition home health service (06) | DRG 291 ==
LOC: ER 12:29 → ERHOLD 16:27 → 2ND 17:00
PROVIDERS: ADMIT Hospitalist; ATTEND Hospitalist
DX: I11.0 Hypertensive heart disease with heart failure (principal); I50.33 Acute on chronic diastolic (congestive) heart failure; E11.65 Type 2 diabetes mellitus with hyperglycemia; K59.00 Constipation, unspecified; E66.01 Morbid (severe) obesity due to excess calories; G89.29 Other chronic pain; F41.9 Anxiety disorder, unspecified; M54.9 Dorsalgia, unspecified; I25.10 Atherosclerotic heart disease of native coronary artery without angina pectoris; M48.56XD Collapsed vertebra, not elsewhere classified, lumbar region, subsequent encounter for fracture with routine healing; Z95.1 Presence of aortocoronary bypass graft; Z68.38 Body mass index [BMI] 38.0-38.9, adult; Z85.038 Personal history of other malignant neoplasm of large intestine; Z79.899 Other long term (current) drug therapy
CPT/HCPCS: 36415; 71045; 74177; 78452; 80048; 80076; 82947; 83036; 83690; 83735; 83880; 84439; 84443; 84484; 85025; 85610; 93005; 93017; 93306; 93970; 96365; 96366; 96372; 96375; 99285; A9500; J1650; J1815; J1940; J2785; J3475; J7030; Q9967